=== PATIENT | female | born 1985 | race Asian ===

== ENCOUNTER 2019-11-29 02:24 | Emergency (ER) | payer SELFPAY ==
[~2019-11-29] VITALS: Ht 162.6 cm; Wt 54.4 kg
[2019-11-29 05:09] LABS: ALBUMIN 3.7 g/dL (3.4-5.0); ALKALINE PHOSPHATASE 49 U/L (46-116); ALT/SGPT 18 U/L (14-59); AST/SGOT 19 U/L (15-37); BILIRUBIN TOTAL 0.24 mg/dL (0.20-1.00); CALCIUM 8.3 mg/dL (8.5-10.1); CARBON DIOXIDE 20.3 mmol/L (21-32); CHLORIDE SERUM 106 mmol/L (98-107); CREATININE SERUM 0.6 mg/dL (0.6-1.0); GFR1 > 60 mL/min; GLUCOSE SERUM 99 mg/dL (74-106); SODIUM SERUM 141 mmol/L (136-145)
[2019-11-29 05:11] LABS: BASOPHIL % 0.5 % (0-2); PLATELET COUNT 232 x10^3mcL (130-400); RED CELL DISTRIBUTION WIDTH 12.9 % (11.5-14.5)
[2019-11-29 05:15] LABS: POTASSIUM SERUM 2.9 mmol/L (3.5-5.1)
[2019-11-29 05:44] VITALS: BP 100/72
== END 2019-11-29 05:44 | disposition home or self-care (01) ==
LOC: ED 02:24
PROVIDERS: Emergency Medicine
DX: S00.83XA Contusion of other part of head, initial encounter (principal); S80.02XA Contusion of left knee, initial encounter; T51.91XA Toxic effect of unspecified alcohol, accidental (unintentional), initial encounter; E87.6 Hypokalemia; Y04.2XXA Assault by strike against or bumped into by another person, initial encounter; Y93.89 Activity, other specified; Y92.89 Other specified places as the place of occurrence of the external cause; Y99.8 Other external cause status
CPT/HCPCS: G0480; J2405; J7030; Q0092